=== PATIENT | male | born 1955 | race Caucasian/White ===

== ENCOUNTER 2023-05-02 12:58 | Inpatient (IN) | payer MEDICARE, BC ==
[2023-05-02 13:41] LABS: #Basophils 0.1 thou/uL (0.0-0.2); #Eosinphils 0.1 thou/uL (0.0-0.7); #Monocytes 1.4 thou/uL (0.11-0.59); #Neutrophils 6.5 thou/uL (1.40-6.50); %Basophils 0.7 % (0.0-1.0); %Lymphocytes 19.2 % (21.0-51.0); %Monocytes 13.6 % (0.0-10.0); %Neutrophils 65.2 % (42.0-75.0); Hematocrit 45.2 % (42.0-52.0); Hemoglobin 15.8 g/dL (14.0-18.0); Mean Corpuscular Volume 94.4 fl (78.0-98.0); Mean Platelet Volume 9.6 fL (7.4-10.4); Platelet Count 228 10x3/uL (130-400); RBC Distribution Width 12.1 % (11.5-14.5); Red Blood Cell (RBC) Count 4.79 mill/uL (4.70-6.10)
[2023-05-02 14:05] LABS: ALT (SGPT) 34 U/L (8-55); AST (SGOT) 21 U/L (5-34); Albumin 4.5 g/dL (3.4-4.8); Alkaline Phosphatase 75 U/L (40-110); Anion Gap 15 mmol/L (10-20); BUN (Urea Nitrogen) 19 mg/dL (8.4-25.7); Bilirubin, Total 1.2 mg/dL (0.2-1.2); Calc. Creatinine Clearance 0 mL/min (70-130); Calcium 9.2 mg/dL (7.8-10.44); Carbon Dioxide 23 mmol/L (23-31); Chloride 101 mmol/L (98-107); Estimated GFR 74; Globulin 2.8 g/dL (2.4-3.5); Glucose 113 mg/dL (80-115); Potassium 3.9 mmol/L (3.5-5.1); Protein, Total 7.3 g/dL (5.8-8.1); Sodium 135 mmol/L (136-145)
[2023-05-02] MEDS ORDERED: Cefepime 2 GM VIAL ONE (14:39)
[2023-05-02] MEDS ORDERED: Sodium Chloride 0.9% 100 ML ONE (14:40)
[2023-05-02] MEDS ORDERED: Vancomycin (BATCH) 2 GM/500 ML BAG ONE (17:33)
[2023-05-02] MEDS ORDERED: Ondansetron ODT 4 MG TAB PO PRN (18:04)
[2023-05-02] MEDS ORDERED: Ondansetron PF 4 MG/2 ML Vial IVP PRN (18:04)
[2023-05-02] MEDS ORDERED: Amlodipine 5 MG TAB PO SCH (18:30)
[2023-05-02 19:58] VITALS: BMI 29.9
[2023-05-02] MEDS: Acetaminophen 325 MG TAB PO PRN (20:06)
[2023-05-02] MEDS: HYDROcodone/Acetaminophen 5/325 mg Tablet PO PRN (23:52)
[2023-05-03] MEDS: Cefepime 1 GM in Sodium Chloride 0.9% 100 ML IVPB SCH ×2 (03:41→14:56)
[2023-05-03] MEDS: Acetaminophen 325 MG TAB PO PRN ×2 (03:58→18:56)
[2023-05-03] MEDS: Vancomycin (BATCH) 1.5 GM in Premix 1 BAG IVPB SCH ×2 (05:10→17:33)
[2023-05-03] MEDS: HYDROcodone/Acetaminophen 5/325 mg Tablet PO PRN (07:48)
[2023-05-03] MEDS: Amlodipine 5 MG TAB PO SCH (08:06)
[2023-05-03 10:43] LABS: #Basophils 0.1 thou/uL (0.0-0.2); #Eosinphils 0.1 thou/uL (0.0-0.7); #Monocytes 1.2 thou/uL (0.11-0.59); #Neutrophils 4.9 thou/uL (1.40-6.50); %Basophils 0.8 % (0.0-1.0); %Eosinophils 1.8 % (0.0-10.0); %Lymphocytes 19.7 % (21.0-51.0); %Monocytes 14.8 % (0.0-10.0); %Neutrophils 62.5 % (42.0-75.0); Hematocrit 44.4 % (42.0-52.0); Hemoglobin 15.5 g/dL (14.0-18.0); Mean Corpuscular HGB CONC 34.9 g/dL (32.0-36.0); Mean Corpuscular Hemoglobin 33.1 pg (27.0-31.0); Mean Corpuscular Volume 94.9 fl (78.0-98.0); Mean Platelet Volume 9.6 fL (7.4-10.4); Platelet Count 227 10x3/uL (130-400); RBC Distribution Width 12.2 % (11.5-14.5); Red Blood Cell (RBC) Count 4.68 mill/uL (4.70-6.10); White Blood Cell (WBC) Count 7.8 10x3/uL (4.8-10.8)
[2023-05-03 11:10] LABS: Anion Gap 13 mmol/L (10-20); BUN (Urea Nitrogen) 15 mg/dL (8.4-25.7); Calc. Creatinine Clearance 102 mL/min (70-130); Calcium 9.2 mg/dL (7.8-10.44); Carbon Dioxide 27 mmol/L (23-31); Chloride 99 mmol/L (98-107); Estimated GFR 85; Glucose 97 mg/dL (80-115); Potassium 4.4 mmol/L (3.5-5.1); Sodium 135 mmol/L (136-145)
[2023-05-03] MEDS: Lactated Ringer's 1,000 ML IV SCH (18:32)
[2023-05-04] MEDS: Cefepime 1 GM in Sodium Chloride 0.9% 100 ML IVPB SCH (03:03)
[2023-05-04 06:47] LABS: #Basophils 0.1 thou/uL (0.0-0.2); #Eosinphils 0.1 thou/uL (0.0-0.7); #Monocytes 1.1 thou/uL (0.11-0.59); #Neutrophils 4.6 thou/uL (1.40-6.50); %Basophils 0.8 % (0.0-1.0); %Eosinophils 1.9 % (0.0-10.0); %Lymphocytes 17.9 % (21.0-51.0); %Monocytes 15.1 % (0.0-10.0); %Neutrophils 63.9 % (42.0-75.0); Hematocrit 42.7 % (42.0-52.0); Hemoglobin 15.1 g/dL (14.0-18.0); Mean Corpuscular HGB CONC 35.4 g/dL (32.0-36.0); Mean Corpuscular Volume 93.4 fl (78.0-98.0); Mean Platelet Volume 9.8 fL (7.4-10.4); Platelet Count 224 10x3/uL (130-400); Red Blood Cell (RBC) Count 4.57 mill/uL (4.70-6.10); White Blood Cell (WBC) Count 7.2 10x3/uL (4.8-10.8)
[2023-05-04 07:07] LABS: Vancomycin, Trough 12.3 ug/mL
[2023-05-04 07:14] LABS: Anion Gap 13 mmol/L (10-20); BUN (Urea Nitrogen) 14 mg/dL (8.4-25.7); Calc. Creatinine Clearance 106 mL/min (70-130); Calcium 8.7 mg/dL (7.8-10.44); Carbon Dioxide 26 mmol/L (23-31); Chloride 103 mmol/L (98-107); Estimated GFR 89; Glucose 100 mg/dL (80-115); Magnesium 2.1 mg/dL (1.6-2.6); Potassium 4.6 mmol/L (3.5-5.1); Sodium 137 mmol/L (136-145)
[2023-05-04] MEDS: Vancomycin (BATCH) 1.5 GM in Premix 1 BAG IVPB SCH ×2 (07:54→18:21)
[2023-05-04] MEDS: Lactated Ringer's 1,000 ML IV SCH ×2 (07:54→14:20)
[2023-05-04] MEDS: Amlodipine 5 MG TAB PO SCH ×2 (08:57→14:19)
[2023-05-04] MEDS ORDERED: fentaNYL PF 100 MCG/2 ML SYRINGE ONE (09:58)
[2023-05-04] MEDS ORDERED: Bupivacaine PF 0.5% 30 ML VIAL ONE (10:50)
[2023-05-04] MEDS ORDERED: Famotidine/PF 20 mg/2ml Vial ONE (12:48)
[2023-05-04] MEDS ORDERED: PROPOFOL 200 MG/20 ML VIAL ONE (12:52)
[2023-05-04] MEDS ORDERED: Ondansetron PF 4 MG/2 ML Vial ONE (12:52)
[2023-05-04] MEDS ORDERED: Lidocaine 1% PF 5 ML VIAL ONE (12:52)
[2023-05-04] MEDS ORDERED: Dexamethasone 20 MG/5 ML VIAL ONE (12:52)
[2023-05-04] MEDS ORDERED: Succinylcholine 200 MG/10 ml SYRINGE FS ONE (12:52)
[2023-05-04] MEDS ORDERED: Morphine Sulfate 2 MG/ML SYRINGE SLOW IVP PRN (13:30)
[2023-05-04] MEDS ORDERED: Promethazine HCl 25 MG/ML VIAL IM PRN (13:30)
[2023-05-04] MEDS ORDERED: Ondansetron HCl/PF 4 MG/2 ML Vial IVP PRN (13:30)
[2023-05-04] MEDS ORDERED: PACU-Morphine 4MG/ML VIAL SLOW IVP PRN (13:30)
[2023-05-04] MEDS ORDERED: HYDROmorphone 2 MG/ML VIAL SLOW IVP PRN (13:30)
[2023-05-04] MEDS ORDERED: fentaNYL 50 mcg/mL 1 mL Vial ONE (13:32)
[2023-05-04] MEDS: Cefepime 2 GM in Sodium Chloride 0.9% 100 ML IVPB SCH (14:19)
[2023-05-04] MEDS ORDERED: Ketorolac Tromethamine 30 MG/ML VIAL IVP SCH (19:30)
[2023-05-04] MEDS: Ketorolac Tromethamine 30 MG/ML VIAL IVP SCH (23:49)
[2023-05-05] MEDS: Cefepime 2 GM in Sodium Chloride 0.9% 100 ML IVPB SCH (02:47)
[2023-05-05] MEDS: Ketorolac Tromethamine 30 MG/ML VIAL IVP SCH (05:43)
[2023-05-05 08:55] LABS: Vancomycin, Trough 16.3 ug/mL
[2023-05-05 08:56] LABS: Anion Gap 13 mmol/L (10-20); BUN (Urea Nitrogen) 23 mg/dL (8.4-25.7); Calc. Creatinine Clearance 102 mL/min (70-130); Calcium 8.9 mg/dL (7.8-10.44); Carbon Dioxide 23 mmol/L (23-31); Chloride 104 mmol/L (98-107); Estimated GFR 85; Glucose 134 mg/dL (80-115); Potassium 4.6 mmol/L (3.5-5.1); Sodium 135 mmol/L (136-145)
[2023-05-05] MEDS ORDERED: Vancomycin (BATCH) 1.5 GM in Premix 1 BAG IVPB SCH (09:00)
[2023-05-05] MEDS: Amlodipine 5 MG TAB PO SCH (09:43)
[2023-05-05 12:21] VITALS: BP 146/81; TEMP 97.7
== END 2023-05-05 13:33 | disposition home or self-care (01) | DRG 580 ==
LOC: ERS 12:58 → T4-A 17:27 → OBSVTOIN 05-03 13:58
PROVIDERS: ADMIT Family Medicine; ATTEND Family Medicine
PROC: 0Y6V0Z0 Detachment at Right 4th Toe, Complete, Open Approach (ICD-10-PCS; principal; 2023-05-04)
DX: L02.611 Cutaneous abscess of right foot (principal); E87.1 Hypo-osmolality and hyponatremia; I96 Gangrene, not elsewhere classified; L03.031 Cellulitis of right toe; I10 Essential (primary) hypertension; M10.9 Gout, unspecified
CPT/HCPCS: 36415; 80048; 80053; 80202; 83036; 83605; 83735; 84443; 85025; 86140; 86850; 86900; 86901; 87040; 87070; 87077; 87186; 87205; 88305; 88311; 96365; 96366; 96367; 96376; 97139; G0378; J0692; J1100; J1885; J2405; J2704; J3010; J3370; J3490; J7120; S0020; S0028